=== PATIENT | male | born 1995 | race Caucasian/White ===

== ENCOUNTER 2017-05-31 18:15 | Emergency (ER) | payer BC, OTHER ==
[~2017-05-31] VITALS: Ht 185.4 cm; Wt 77.1 kg
[2017-05-31 18:26] VITALS: BP 152/85
[2017-05-31] MEDS ORDERED: IBUPROFEN 600 MG TAB PO ONE (20:00)
== END 2017-05-31 20:32 | disposition home or self-care (01) ==
LOC: ER 18:22
DX: S00.93XA Contusion of unspecified part of head, initial encounter (principal); H92.01 Otalgia, right ear; V43.62XA Car passenger injured in collision with other type car in traffic accident, initial encounter; Y93.89 Activity, other specified; Y92.89 Other specified places as the place of occurrence of the external cause; Y99.8 Other external cause status